=== PATIENT | female | born 1990 | race Caucasian/White ===

== ENCOUNTER → 2025-09-17 14:08 | Outpatient (CLI) | payer OTHER, SELFPAY ==
--- NOTE | 2025-09-17 14:09 | DI.RAD.S_ITS ---
PROCEDURE: XR KNEE LT 3V
== END ==
PROVIDERS: Referring Provider Nurse Practitioner Family; Visit Provider Nurse Practitioner Family
DX: S86.912A Strain of unspecified muscle(s) and tendon(s) at lower leg level, left leg, initial encounter (principal); M25.462 Effusion, left knee; X58.XXXA Exposure to other specified factors, initial encounter
CPT/HCPCS: 73562